=== PATIENT | female | born 1965 | race Caucasian/White ===

== ENCOUNTER → 2017-11-03 | Day surgery (SDC) | payer OTHER ==
--- NOTE | 2017-10-28 16:50 | MH ---
cc: Cassandra Gabriel MD DATE OF ADMISSION: 11/03/2017 The patient is a 52-year-old white female G3, P1-0-2-1 menopausal at the age of 49. She is not on hormone therapy. She presented to my office in September complaining of a recent spotting episode that last a week. She did report she had a prior episode of bleeding one year ago. At that time, she started having some low back pain and that has continued through until now. She does have a history of ovarian cysts. At time for that first meeting, examination revealed she had about a 4 cm prolapsing mass through her cervix, either a polyp or a fibroid and that is probably the source of her bleeding and potentially the source of her pain. I discussed that with her that we would need to be in the operating room where she can have anesthesia so I could remove that and assess her uterine cavity correctly and I recommend we doing a MyoSure D and C. She understands and would like to proceed. PAST MEDICAL HISTORY: Hypertension, elevated cholesterol. PAST SURGICAL HISTORY: AAA repair and leg fracture. MEDICATIONS CURRENTLY: Losartan, statins, atenolol, calcium, magnesium, aspirin, Co-Q10 and Atorvastatin. ALLERGIES TO MEDICATIONS: NONE. SOCIAL HISTORY: No tobacco. Occasional alcohol. No drug use. 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 FAMILY HISTORY: Breast cancer, uterine cancer, coronary artery disease, dementia, Alzheimer 's, thyroid. 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 No history of STDs. OB HISTORY: x 1 and 2 terminations. PHYSICAL EXAMINATION: VITAL SIGNS: Her weight is 123, height 5 foot 1. Blood pressure 138/76, pulse of 70. BREASTS: Without masses, nodes or discharge. CHEST: Clear to auscultation bilaterally. CARDIAC: A regular rate and rhythm without murmur, rub or gallop. ABDOMEN: Soft, nontender, nondistended. No hepatosplenomegaly. No CVA tenderness. No hernias. PELVIC EXAM: Vulva, vagina and normal external female genitalia. Vaginal vault is normal. Cervix abnormal because it has about a 4 cm firm mass prolapsing through it, otherwise no lesions. Uterus palpates normal size. No adnexal masses. Pap smear was done 2016, which was negative. ASSESSMENT AND PLAN: Postmenopausal bleeding with a prolapsing cervical mass. Plan will be for MyoSure dilatation and curettage. MD BRI Doe/RITA , 04:26 PM , 04:48 PM
[~2017-11-03] VITALS: Ht 154.9 cm; Wt 57.1 kg
[~2017-11-03] MED LIST: *morphine SULFATE 4 MG/ML PERIprocedure ONLY ONE; ACETAMINOPHEN 1000 MG/100 ML 100 ML IV ONE; ASPI81TA81; ATEN25TA PO; ATOR20TA15 PO; CHLORHEXIDINE GLUCONATE 2 % 1 PACK (2 CLOTHS) TOPICAL PRN; CO Q100C9 PO; DEXAMETHASONE SOD PHOS 4 MG/ML VIAL IV ONE; DO NOT ADM ANY ANTICOAGULANT DRUGS PRN; INSULIN HUMAN REGULAR 1,000 UNITS/10 ML VIAL SQ PRN; KETOROLAC TROMETHAMINE 30 MG/ML (IVP) VIAL IV PUSH ONE; KETOROLAC TROMETHAMINE 30 MG/ML (IVP) VIAL IV PUSH PRN; LACTATED RINGER'S 1000 ML IV PRN; LIDOCAINE HCL 1% PF 5 ML SYRINGE OTHER ONE; LOSA25TA PO; METOPROLOL TARTRATE 25 MG TAB PO PRN; ONDANSETRON HCL 4 MG/2 ML VIAL IV ONE; ONDANSETRON HCL 4 MG/2 ML VIAL IV PUSH PRN; PHENYLEPH/NS 1000 MCG/10 ML SYR IV ONE; POVIDONE IODINE 5% (ANTISEPSIS KIT) 4 APPLICATIONS EACH NARE PRN; PROPOFOL 200 MG/20 ML AMP IV ONE; SODIUM CHLORID 0.9% 500 ML IV PRN; oxyCODONE/ACETAMINOPHEN 5 MG/325 MG TAB PO PRN
[2017-11-03 08:02] LABS: AUTOMATED NEUTROPHIL # 2.7 TH/MM3 (1.8-7.7); BASOPHIL % 0.8 % (0.0-2.0); EOSINOPHIL # 0.1 TH/MM3 (0-0.4); EOSINOPHIL % 1.5 % (0.0-4.0); HEMATOCRIT 34.7 % (35.0-46.0); LYMPHOCYTE # 2.2 TH/MM3 (1.0-4.8); MEAN CELL VOLUME 95.3 FL (80.0-100.0); MEAN CORPUSCULAR HGB CONC 34.6 % (32.0-36.0); MONOCYTE # 0.4 TH/MM3 (0-0.9); NEUT % 49.7 % (16.0-70.0); PLATELET COUNT 230 TH/MM3 (150-450); RED BLOOD COUNT 3.64 MIL/MM3 (4.00-5.30); RED CELL DISTRIBUTION WIDTH 12.8 % (11.6-17.2); WHITE BLOOD COUNT 5.4 TH/MM3 (4.0-11.0)
--- NOTE | 2017-11-03 11:11 | MP ---
cc: Cassandra Gabriel MD DATE OF OPERATION: 11/03/2017 PREOPERATIVE DIAGNOSIS: Postmenopausal bleeding with a cervical mass. POSTOPERATIVE DIAGNOSIS: Postmenopausal bleeding with a cervical mass. PROCEDURE PERFORMED: Dilatation and curettage with hysteroscopy and removal of cervical mass. OPERATING SURGERY: Cassandra Gabriel MD ANESTHESIA: General by facemask. FINDINGS IN SURGERY: Included about a 3-4 cm firm prolapsing endocervical mass either probably a fibroid or a polyp and an otherwise benign-appearing endometrium. BLOOD LOSS: Minimal. COMPLICATIONS: None. PROCEDURE IN DETAIL: After proper consents had been obtained, the patient was taken to the operating room where general by facemask anesthesia was applied. She was then placed in the dorsal lithotomy position, sterilely prepped and draped. At this time, a weighted speculum was placed in the vaginal vault. It was very easy to visualize the prolapsing cervical mass. It was very firm in nature. I grasped it with a single-tooth tenaculum and twisted it until it came off with its entire stalk. We handed that for permanent pathology. I then sounded the uterus to about 6 cm, dilated it with Hegar dilators up to about a number 16. I then placed the hysteroscope using normal saline as the distended medium into the uterine cavity, inspected it and all appeared quite normal. We were going to use a MyoSure, however the instrument was not working correctly, so I just performed a sharp curetting of the endometrium and the endocervix and sent that off for permanent pathology. The instruments were removed. The counts were correct and the patient was stable to the recovery room. Cassandra Gabriel MD CCD/DL , 11:01 AM , 11:09 AM
[2017-11-03 12:05] VITALS: BP 106/57; PULSE 63; RESP 16; TEMP 96.5; O2SAT 98
--- NOTE | 2017-11-03 18:13 | EKG ---
Date Performed: 11/03/2017 Time Performed: 06:18:00 PTAGE: 52 years EKG: SINUS BRADYCARDIA POSSIBLE LEFT ATRIAL ENLARGEMENT BORDERLINE ECG NO PREVIOUS TRACING DOCTOR: Lakisha Valdez Interpretating Date/Time 11/03/2017 18:11:44
== END | disposition home or self-care (01) ==
LOC: HSDC 06:46
PROVIDERS: ATTEND Obstetrics & Gynecology
DX: N95.0 Postmenopausal bleeding (principal); D25.0 Submucous leiomyoma of uterus; R00.1 Bradycardia, unspecified
CPT/HCPCS: 00952; 58558; 84703; 85025; 86850; 86900; 86901; 88305; 93005; J0131; J1100; J1885; J2270; J2370; J2405